=== PATIENT | female | born 1945 | race Caucasian/White ===

== ENCOUNTER 2021-05-13 09:52 | Outpatient (CLI) | payer OTHER, SELFPAY ==
[2021-05-13 10:06] LABS: Mucous, Urine 0 SEEN /hpf (<or=2+)
[2021-05-13 10:08] LABS: Color, Urine Yellow (Yellow); Glucose, Dipstick Normal (Normal); Ketone-Dipstick Negative (Negative); Leukocyte Esterase-Dipstick Negative /ul (Negative); Nitrite-Dipstick Negative (Negative); Occult Blood-Urine 10 /ul (Negative); Protein-Dipstick 15 mg/dl (Negative); Urine Bilirubin Dipstick Negative (Negative); Urine Clarity Clear (Clear); Urine Urobilinogen Normal (Normal)
[2021-05-13 10:14] LABS: Bacteria 1+ /hpf (None Seen); Red Blood Cells-Urine 0-5 SEEN /hpf (0-5); Squamous Epithelial Cells - UA 0-5 SEEN /hpf (5-10); White Blood Cells 5-10 SEEN /hpf (0-5)
== END 2021-05-13 23:59 | disposition short-term general hospital (02) ==
PROVIDERS: Visit Provider Physician Assistant
DX: R30.9 Painful micturition, unspecified (principal)
CPT/HCPCS: 81001

== ENCOUNTER 2024-02-18 20:42 | Emergency (ER) | payer MEDICARE, SELFPAY ==
[2024-02-18 20:45] VITALS: BP 176/102; BP 193/85; PULSE 70; PULSE 76; RESP 16; TEMP 36.7; O2SAT 92; O2SAT 98; BMI 29.0
--- NOTE | 2024-02-18 21:02 | EDS_ITS ---
HPI History of Present Illness Chief Complaint: Hypertension Informant: patient Onset/Context/Timing Onset: Today Timing: Continuous Quality: Elevated blood pressure Location: Generalized Worsened by: Nothing Relieved by: Nothing Narrative Narrative: Patient presents with elevated blood pressure that she noticed tonight. The patient states her has a history of hypertension and he was checking his blood pressure. Patient states that she decided to check her blood pressure as well. The patient states it was up to 203/117. Patient denies any symptoms. Patient states she is visiting from [place] and has been eating a lot of salty foods this last week. Patient denies any chest pain or shortness of breath. Patient denies any visual changes. Patient denies any nausea or vomiting. Patient denies any problems urinating. [facility] Medical History (Updated 02/18/24 @ 22:[address] Ming Mcclain DO) Gastroesophageal reflux disease Acute lumbar myofascial strain Urinary frequency Home Medications ?Medication ?Instructions ?Recorded ?Last Taken ?Type cyclobenzaprine 5 mg tablet 5 mg PO TID PRN muscle spasm #30 05/12/21 Unknown Rx tabs ibuprofen 600 mg tablet 600 mg PO TID #30 tabs 05/12/21 Unknown Rx atorvastatin 20 mg tablet 20 mg PO DAILY 02/18/24 Unknown History pantoprazole 40 mg tablet,delayed 40 mg PO DAILY 02/18/24 Unknown History release Allergy/AdvReac Type Severity Reaction Status Date / Time azithromycin Allergy Intermediate . Verified 02/18/24 20:45 Penicillins Allergy Intermediate . Verified 02/18/24 20:45 Family History no significant family his Surgical History no surgical history no surgical history Social History Smoking Status: Never smoker ROS ROS ED Constitutional Constitutional ED: Denies chills or fever(s) Eyes Eyes: Denies blurry vision or change in vision ENT ENT ED: Denies rhinorrhea or sore throat Cardiovascular Cardiovascular: Denies chest pain or palpitations Respiratory/Chest Respiratory/Chest: Denies cough or dyspnea Gastrointestinal Gastrointestinal: Denies nausea or vomiting Genitourinary Genitourinary ED: Denies dysuria or hematuria Musculoskeletal Musculoskeletal: Denies back pain or neck pain Integumentary Denies abscess or rash Neurologic Neurologic: Denies headache(s) or weakness Allergic/Immunologic Allergic/Immunologic ED: Denies mouth swelling or urticaria EXAM Physical Exam Const Vital Signs: 02/18/24 20:45 02/18/24 20:45 02/18/24 20:58 Temperature 98.1 F Temperature Source Oral Pulse Rate 76 70 Respiratory Rate 16 16 Respiratory Effort Normal Respiratory Pattern Normal Blood Pressure 176/102 H 193/85 H Blood Pressure Mean 126 121 Pulse Ox 98 92 Oxygen Delivery Method Room Air Room Air Positive well nourished and well developed General Appearance ED: well developed and NAD HEENT Reports moist mucous membranes Neck supple and no JVD Resp normal respiratory effort and clear to auscultation bilaterally Cardio regular rate and regular rhythm GI non-tender Palpation: soft Extremity normal to inspection General Extremety ED: Negative for edema or tenderness General Extremity: Negative for edema Neuro oriented x3, CN's II-XII intact bilaterally and no sensory deficits noted Sensorium / Orientation: alert Motor Exam: strength 5/5 throughout Psych mental status grossly normal MDM MDM MDM Narrative Medical decision making narrative: Differential diagnosis includes hypertension, hypertensive urgency, cardiac dysrhythmia, cardiac ischemia, pneumonia, pneumothorax, electrolyte abnormality, acute kidney injury, and anxiety. EKG will be obtained to assess for cardiac dysrhythmia and cardiac ischemia. Chest x-ray will be obtained to assess for pneumonia and pneumothorax. CBC will be obtained to assess for leukocytosis and anemia. Basic metabolic profile will be obtained to assess for electrolyte abnormality and renal function. High-sensitivity troponin will be obtained to assess for cardiac ischemia. Lab Data Attestation: I reviewed the patient's lab results. Lab results narrative: CBC was reviewed and was within normal limits. Basic metabolic profile was reviewed and was within normal limits. High-sensitivity troponin was reviewed and was normal at 6. Labs: Laboratory Results - last 24 hr 02/18/24 21:33 WBC 9.2 RBC 4.51 Hgb 13.6 Hct 42.1 MCV 93.3 MCH 30.2 MCHC 32.3 RDW Std Deviation 43.7 RDW Coeff of Kevin 12.8 Plt Count 267 MPV 10.4 Immature Gran % (Auto) 0.500 Neut % (Auto) 58.7 Lymph % (Auto) 25.7 [place] % (Auto) 10.3 H Eos % (Auto) 3.9 Baso % (Auto) 0.9 Absolute Neuts (auto) 5.4 Absolute Lymphs (auto) 2.36 Nucleated RBC % 0 Sodium 144 Potassium 3.7 Chloride 110 H Carbon Dioxide 28.0 Anion Gap 6 BUN 12 Creatinine 0.74 Estim Creat Clear Calc 48.89 Est GFR (MDRD) Af Amer 98 Est GFR (MDRD) Non-Af 81 BUN/Creatinine Ratio 16.3 Glucose 165 H Calcium 9.1 Troponin I High Sens 6 Radiography Chest X-Ray - ED: 2 View, Read by ED Physician, Read by Radiologist and Unchanged Diagnostic Testing: Clinical Impression(s) from Imaging Studies Chest X-Ray 02/18/24 21:40 IMPRESSION: No radiographic evidence of acute cardiopulmonary disease. Electronically Signed: Nasim Juarez MD at 22:03 EST , PA and lateral chest x-ray was obtained. There are 2 views. On my independent interpretation, lung snow are clear. There is normal cardiac silhouette. Bony thorax is normal. There is no acute process noted. Radiologist also interpreted the x-ray and agrees. EKG Initial EKG: Attestation: I personally reviewed and interpreted this EKG as follows: Interpretation: Sinus Rhythm (67) and No Acute Injury Pattern Comments: EKG was obtained. On my independent interpretation, it showed a normal sinus rhythm with a rate of 67. VA interval, QRS interval, and QTc intervals were all normal. [place] was normal. There are no acute ST or T wave changes. Prior EKG tracings: not available for review Prior: No Prior Treatment and Re-Evaluation :: Patient was given a dose of hydralazine here. Patient was advised of her findings. Patient was instructed to monitor her salt intake. Patient was instructed to continue to monitor her blood pressure. Patient was instructed to follow-up with her primary care physician in 5 to 7 days. Patient was instructed to return if worse in any way. Patient understood and was agreeable with the plan. All questions were answered. Discharge Plan Triage Chief Complaint: Hypertension ED Provider: Ming Mcclain Dx/Rx/DC Orders Clinical Impression: Elevated blood-pressure reading without diagnosis of hypertension, Gastroesophageal reflux disease Instructions: ED Hypertension, To Be Confirmed Prescriptions: No Action ibuprofen 600 mg tablet 600 mg PO TID Qty: 30 0RF Rx Instructions: take with food cyclobenzaprine 5 mg tablet 5 mg PO TID PRN (Reason: muscle spasm) Qty: 30 0RF Rx Instructions: do not drive after taking this medication atorvastatin 20 mg tablet 20 mg PO DAILY pantoprazole 40 mg tablet,delayed release (DR/EC) 40 mg PO DAILY Primary Care Provider: [facility],Out of Referrals: [facility],Out of [Primary Care Provider] - 5-7 Days Print Language: Setswana Disposition Disposition: Home, Self Care
--- NOTE | 2024-02-18 21:25 | EKG12_ITS ---
Test Reason : DYSRHYTHMIA Blood Pressure : */* mmHG Vent. Rate : 67 BPM Atrial Rate : 67 BPM P-R Int : 170 ms QRS Dur : 80 ms QT Int : 386 ms P-R-T Axes : 84 0 88 degrees QTcB Int : 407 ms Normal sinus rhythm Non-specific ST & T wave changes Abnormal ECG Confirmed by Kalin Spain ([id number]), medical transcription editor MECHE GUZMAN ([id number]) on 02/19/2024 9:20:48 AM Referred By: Confirmed By: Kalin Spain
--- NOTE | 2024-02-18 21:40 | RAD_ITS ---
EXAM: XR CHEST, 2 VIEWS CLINICAL INDICATION: Hypertension TECHNIQUE: Frontal and lateral views of the chest. COMPARISON: No relevant prior studies available. FINDINGS: LUNGS AND PLEURAL SPACES: Low lung volumes with discoid atelectasis or scarring in the left midlung laterally. No consolidation or edema. No pneumothorax. No effusion. HEART: Mild cardiomegaly. Normal pulmonary vasculature. MEDIASTINUM: Mild-moderate elongation of the thoracic aorta.. BONES/JOINTS: Multi-level lumbar degenerative disc disease. No acute fracture. SOFT TISSUES: Eventration of the right hemidiaphragm anteriorly. RAD/Chest PA and Lateral IMPRESSION: No radiographic evidence of acute cardiopulmonary disease. Electronically Signed: Nasim Juarez MD at 22:03 EST ,
[2024-02-18 21:41] LABS: Absolute Lymphocyte Count 2.36 X10^3/uL (0.83-4.51); Absolute Neutrophil Count 5.4 X10^3/uL (2.0-7.7); Basophil# 0.08 X10^3/uL; Basophil% 0.9 % (0-1); Eosinophil# 0.36 X10^3/uL; Eosinophils% 3.9 % (0-5); Hematocrit 42.1 % (37-47); Hemoglobin 13.6 g/dL (12.0-15.0); Lymphocyte # 2.36 X10^3/ul (0.83-4.51); Lymphocyte % 25.7 % (19-41); Mean Corp Hgb Conc 32.3 g/dL (32-36); Mean Corpuscular Hgb 30.2 pg (27.0-32.0); Mean Corpuscular Volume 93.3 fL (81-99); Mean Platelet Vol. 10.4 fl (6.2-12.0); Monocyte# 0.95 X10^3/uL; Monocyte% 10.3 % (0-10); NRBC Flagged by Analyzer 0 % (0-5); Neutrophil # 5.38 X10^3/uL (2.7-7.7); Neutrophil % 58.7 % (47-70); Platelet Count 267 K/mm3 (150-450); RBC Distribution Width CV 12.8 % (11.6-14.6); RBC Distribution Width SD 43.7 fl (35.1-43.9); Red Blood Count 4.51 M/mm3 (4.2-5.4); White Blood Count 9.2 K/mm3 (4.4-11.0)
[2024-02-18 22:00] LABS: Anion Gap 6 (5-15); BUN 12 mg/dL (7-18); BUN/Creat Ratio 16.3 RATIO (10-20); Calcium,Total 9.1 mg/dL (8.5-10.1); Chloride 110 mmol/L (98-107); Creatinine, Serum 0.74 mg/dL (0.55-1.02); EST Glomerular Filtration Rate 81 mL/min (>60); Est Glom Filt Rate - Afr Amer 98 mL/min (>60); Estimated Creatinine Clearance 48.89 ml/min; Glucose 165 mg/dL (74-106); Potassium 3.7 mmol/L (3.5-5.1); Sodium Level 144 mmol/L (136-145); Troponin-I HS 6 pg/mL (3.0-54.0)
[2024-02-18] MEDS: hydrALAZINE 20 MG/ML Vial 5 MG IV (22:34)
[2024-02-18 22:45] VITALS: BP 152/88; PULSE 120; RESP 17; O2SAT 92
--- NOTE | 2024-02-18 23:13 | ED.RN ---
THIS RN WENT TO DISCHARGE THIS PATIENT WHEN PATIENT WAS ASKING ABOUT THE MEDICATION SHE WAS GIVEN THROUGH HER IV. PT STATES I HAVE THIS HEAVINESS ON MY CHEST AND I FEEL DIZZY. RN STATES THAT CAN BE A SIDE EFFECT OF THE HYDRALYZINE. IT WAS GIVEN TO BRING YOUR BLOOD PRESSURE DOWN. PATIENTS VISITOR STATES WELL HER HEART RATE IS IN THE 90S. RN STATES THAT IS NORMAL. VISITOR STATES WELL IT WAS IN THE 60S WHEN SHE WAS SITTING HERE. RN STATES THIS IS STILL A NORMAL HEART RATE. DR. DUNAWAY NOTIFIED OF CONVERSATION AND INFORMED THIS RN TO DISCHARGE THE PATIENT. MESSAGE RELAYED TO OANH WILL
[2024-02-18 23:16] VITALS: BP 145/75; PULSE 86; RESP 15
[2024-02-18 23:17] VITALS: BP 145/75; PULSE 92; RESP 16; TEMP 36.7; O2SAT 92
== END 2024-02-18 23:21 | disposition home or self-care (01) ==
PROVIDERS: Emergency Provider Emergency Medicine; Visit Provider Emergency Medicine
DX: R03.0 Elevated blood-pressure reading, without diagnosis of hypertension (principal); K21.9 Gastro-esophageal reflux disease without esophagitis; Z79.899 Other long term (current) drug therapy
CPT/HCPCS: 71046; 80048; 84484; 85025; 93005; 96374; 99284; A4216

== ENCOUNTER 2024-02-19 12:31 | Emergency (ER) | payer MEDICARE, SELFPAY ==
[2024-02-19 12:34] VITALS: BP 173/98; PULSE 78; RESP 18; TEMP 36.3; O2SAT 97; BMI 29.3
[2024-02-19 14:32] VITALS: BP 158/79; PULSE 67; RESP 18; O2SAT 96
--- NOTE | 2024-02-19 14:44 | EX.ED.DYSGE1 ---
HPI History of Present Illness Chief Complaint: Hypertension Narrative Narrative: 78-year-old female past medical history of chronic headaches and GERD, usually takes Excedrin for her headaches presents with reported elevated blood pressure. Of note, she was seen in the emergency department last night where she had laboratory work drawn, and they gave her a dose of medication to bring down her blood pressure because it was over 200 systolic. They told her to keep an eye on her blood pressure and take it this afternoon. When she did, the top number was in the 170s. She denies any chest pain or shortness of breath. No worsening headache than what she usually has. She states that she does not have a history of high blood pressure, and that she is visiting from [place] and is returning on Sunday. This is approximately 6 days from now. She Eleno presents to the emergency department with her sister because of elevated blood pressure reading and she remains asymptomatic. She had a family member, her niece who is a family physician who told her that she needed medication to keep her blood pressure down until she returns home. She presents to the emergency department again because of the elevated blood pressure. She states that yesterday she had taken 2 Excedrin as well as a pain pill that was [id number]. [facility] Medical History Gastroesophageal reflux disease Acute lumbar myofascial strain Urinary frequency Home Medications ?Medication ?Instructions ?Recorded ?Last Taken ?Type cyclobenzaprine 5 mg tablet 5 mg PO TID PRN muscle spasm #30 05/12/21 Unknown Rx tabs ibuprofen 600 mg tablet 600 mg PO TID #30 tabs 05/12/21 Unknown Rx atorvastatin 20 mg tablet 20 mg PO DAILY 02/18/24 Unknown History pantoprazole 40 mg tablet,delayed 40 mg PO DAILY 02/18/24 Unknown History release amlodipine 2.5 mg tablet 2.5 mg PO DAILY #14 tabs 02/19/24 Unknown Rx Allergy/AdvReac Type Severity Reaction Status Date / Time azithromycin Allergy Intermediate . Verified 02/19/24 12:34 Penicillins Allergy Intermediate . Verified 02/19/24 12:34 Social History Smoking Status: Never smoker ROS ROS ED ROS Narrative Constitutional: No fever, no chills. Positive elevated blood pressure. HEENT: No sore throat. No neck pain. No loss of vision. No rhinorrhea. Cardiovascular: No chest pain. No palpitations. No pedal edema. Respiratory: No cough, no shortness of breath. Abdominal: No abdominal pain. No nausea. No vomiting. Genitourinary: No dysuria. No hematuria. Musculoskeletal: No myalgias. No arthralgias. Neurologic: Chronic headaches. No dizziness. No lightheadedness. Skin: No rash. No change in color. Psychiatric: No depression. No anxiety. EXAM Physical Exam Narrative Exam Narrative: Afebrile. Vital signs noted. Cardiovascular examination reveals a regular rate and rhythm. Lungs are clear to auscultation bilaterally. Abdomen soft and nontender with normal active bowel sounds. Neurological examination is nonfocal and nonlateralizing. No noted pedal edema. Const Vital Signs: 02/19/24 12:34 02/19/24 14:32 Temperature 97.3 F L Temperature Source Temporal Pulse Rate 78 67 Respiratory Rate 18 18 Blood Pressure 173/98 H 158/79 H Blood Pressure Mean 123 105 Pulse Ox 97 96 Oxygen Delivery Method Room Air MDM MDM MDM Narrative Medical decision making narrative: I reviewed the patient's prior ED visit. She had laboratory work yesterday that was grossly unremarkable. I do not feel she needs repeat laboratory work. Her troponin was negative at the time. Initially, upon arrival her blood pressure was elevated at 173/98. Repeat without intervention is now 158/79. As she remains asymptomatic, I do not feel that she requires any imaging or repeat laboratory work. She has chronic headaches, so I have very low concern for intracranial hemorrhage or hypertensive bleed. In discussion with the patient, through shared decision making, she agrees and would like to receive a prescription for a few tablets of amlodipine and follow-up with her primary care provider. I wrote her prescription for 2.5 mg to take daily, and told her to keep an eye on her blood pressure until she is seen by her primary care provider in [place]. She will return with symptomatic elevated blood pressure such as chest pain or shortness of breath, or repeated systolic blood pressure over 200. I feel she can be discharged safely home with follow-up. Return instructions reviewed. Disposition is discharged home in stable condition. History & Record Review Discussion w/independent historian: Patient and Family Additional record(s) reviewed:: Prior ED visit and Prior labs Discharge Plan Triage Chief Complaint: Hypertension ED Provider: Domingo Silveira Dx/Rx/DC Orders Clinical Impression: Elevated blood-pressure reading without diagnosis of hypertension Instructions: ED Hypertension, To Be Confirmed, ED Hypertension New Begin Treatment Prescriptions: New amlodipine 2.5 mg tablet 2.5 mg PO DAILY Qty: 14 0RF No Action ibuprofen 600 mg tablet 600 mg PO TID Qty: 30 0RF Rx Instructions: take with food cyclobenzaprine 5 mg tablet 5 mg PO TID PRN (Reason: muscle spasm) Qty: 30 0RF Rx Instructions: do not drive after taking this medication atorvastatin 20 mg tablet 20 mg PO DAILY pantoprazole 40 mg tablet,delayed release (DR/EC) 40 mg PO DAILY Primary Care Provider: BERRY HARTMAN Referrals: BERRY HARTMAN [Other] - 5-7 Days Activity Restrictions/Additional Instructions: Return with any symptoms of high blood pressure including chest pain, shortness of breath, new or worsening symptoms. Take the medication as directed. Follow-up with your primary care provider as soon as you return home to [place]. Call the office today for an appointment. Keep track of your blood pressure. Definitely return to the emergency department if it is over 200 systolic (the top number) Print Language: Portuguese Disposition Disposition: Home, Self Care
[2024-02-19 15:16] VITALS: BP 148/78; PULSE 74; RESP 19; TEMP 36.9; O2SAT 97
[2024-02-19] MEDS: Acetaminophen 325 MG Tablet 650 MG PO (15:19)
== END 2024-02-19 15:23 | disposition home or self-care (01) ==
LOC: ED 14:46
PROVIDERS: Emergency Provider Emergency Medicine; Visit Provider Emergency Medicine
DX: R03.0 Elevated blood-pressure reading, without diagnosis of hypertension (principal); K21.9 Gastro-esophageal reflux disease without esophagitis; Z79.899 Other long term (current) drug therapy
CPT/HCPCS: 99282; A4216